=== PATIENT | male | born 1940 | race Caucasian/White ===

== ENCOUNTER 2019-05-20 21:56 | Inpatient (IN) | payer MEDICARE ==
[~2019-05-20] VITALS: Ht 188 cm; Wt 113.6 kg
[2019-05-20 22:31] LABS: BASOPHILS # (AUTO) 0.1 X10'3 (0-0.2); BASOPHILS % (AUTO) 1.5 % (0-1); EOSINOPHILS # (AUTO) 0.1 X10'3 (0-0.9); EOSINOPHILS % (AUTO) 2.2 % (0-6); HEMATOCRIT 46.4 % (42.0-52.0); HEMOGLOBIN 15.9 g/dl (14.0-17.9); MEAN CORPUSCULAR HEMOGLOBIN 28.4 PG (27.0-31.0); MEAN CORPUSCULAR HGB CONC 34.3 g/dL (33.0-36.5); MEAN CORPUSCULAR VOLUME 82.7 FL (78-98); MEAN PLATELET VOLUME 8.4 FL (7.4-10.4); MONOCYTES # (AUTO) 0.5 X10'3 (0-0.9); MONOCYTES % (AUTO) 8.3 % (2-12); NEUTROPHILS # (AUTO) 2.8 X10'3 (1.8-7.7); PLATELET COUNT 169 X10'3 (140-440); WHITE BLOOD COUNT 5.5 X10'3 (4.5-11.0)
[2019-05-20 22:45] LABS: ALANINE AMINOTRANSFERASE 53 U/L (12-78); ALBUMIN/GLOBULIN RATIO 1.4 (1.1-1.5); ALKALINE PHOSPHATASE 100 IU/L (46-116); ANION GAP 9 (8-16); ASPARTATE AMINO TRANSFERASE 30 U/L (10-37); BILIRUBIN,TOTAL 0.4 MG/DL (0.1-1.0); BLOOD UREA NITROGEN 20 MG/DL (7-18); CALCIUM 8.6 MG/DL (8.5-10.1); CHLORIDE 106 MMOL/L (99-107); CREATININE 1.05 MG/DL (0.60-1.10); SODIUM 141 MMOL/L (135-145); TOTAL PROTEIN 6.9 G/DL (6.4-8.2); eGFR 68 ML/MIN
[2019-05-20 22:47] LABS: GLUCOSE 158 MG/DL (70-104); POTASSIUM 3.9 MMOL/L (3.5-5.1)
[2019-05-20] MEDS ORDERED: nitroGLYCERIN 1gm ointment UD TP ONE (23:00)
[2019-05-20] MEDS ORDERED: aspirin 81mg tab.chew PO ONE (23:00)
[2019-05-20] MEDS ORDERED: enoxaparin 100mg/ml syringe SUBCUT ONE (23:00)
[2019-05-20 23:13] LABS: PARTIAL THROMBOPLASTIN TIME 27 SECONDS (22-32)
[2019-05-20 23:27] LABS: MAGNESIUM 1.7 MG/DL (1.5-2.4)
[2019-05-20] MEDS ORDERED: NAPR220C15 PO (23:38)
--- NOTE | 2019-05-20 23:39 | NUR ---
PT WAS BEEN UPDATED ON PLAN OF CARE AND NEED FOR ADMISSION - IS CURRENTLY AT BEDSIDE BUT WILL BE GOING HOME FOR THE NIGHT.
[2019-05-20] MEDS ORDERED: acetaminophen 325mg tablet PO PRN (23:45)
[2019-05-20] MEDS ORDERED: magnesium 4gm in 100ml NS 100 ML IV PRN (23:45)
[2019-05-20] MEDS ORDERED: morphine 2 MG/ML inj. syringe IV PRN (23:45)
[2019-05-20] MEDS ORDERED: magnesium Cl slow-release 64mg tablet PO PRN (23:45)
[2019-05-20] MEDS ORDERED: magnesium 2GM in 50ml NS 50 ML IV PRN (23:45)
[2019-05-20] MEDS ORDERED: potassium CL 10mEq/100ml bag 100 ML IV PRN ×2 (23:45)
[2019-05-20] MEDS ORDERED: potassium Cl 20 mEq SR tablet PO PRN ×2 (23:45)
[2019-05-20] MEDS ORDERED: ondansetron/PF 4mg/2ml inj IV PRN (23:45)
[2019-05-21] VITALS (12 sets, daily range): BP systolic 115–172; BP diastolic 66–97
[2019-05-21] MEDS: normal saline 1000ml 1,000 ML IV SCH ×3 (01:55→18:09)
--- NOTE | 2019-05-21 02:19 | NUR ---
Page Sent promotional table spacer PAGER ID: [phone] MESSAGE: [phone] A Nishant Flud here for chest pain had a critical 3hr trop of 2.17 from previous 0.24. Bobbi [phone]
--- NOTE | 2019-05-21 02:42 | NUR ---
Dr. Bro notified of elevated trop of 2.17. Adali ordered an aggrastat and heparin drip along with 1inch nitro paste q8. pharmacy stated to start the heparin drip at 0600 since the patient was given lovenox downstairs.
[2019-05-21] MEDS: tirofiban 5mg in NS 100mL 100 ML IV SCH ×2 (02:47→07:50)
[2019-05-21 05:08] LABS: BASOPHILS % (AUTO) 0.7 % (0-1); EOSINOPHILS # (AUTO) 0.1 X10'3 (0-0.9); EOSINOPHILS % (AUTO) 2.3 % (0-6); HEMOGLOBIN 14.9 g/dl (14.0-17.9); LYMPHOCYTES # (AUTO) 2.5 X10'3 (1.1-4.8); LYMPHOCYTES % (AUTO) 42.8 % (21-51); MEAN CORPUSCULAR HEMOGLOBIN 28.4 PG (27.0-31.0); MEAN CORPUSCULAR HGB CONC 33.9 g/dL (33.0-36.5); MEAN CORPUSCULAR VOLUME 83.6 FL (78-98); MEAN PLATELET VOLUME 8.5 FL (7.4-10.4); MONOCYTES # (AUTO) 0.5 X10'3 (0-0.9); NEUTROPHILS # (AUTO) 2.6 X10'3 (1.8-7.7); NEUTROPHILS % (AUTO) 45.2 % (42-75); PLATELET COUNT 169 X10'3 (140-440); RED BLOOD COUNT 5.27 X10'6 (4.70-6.10); RED CELL DISTRIBUTION WIDTH 14.4 % (11.5-14.5); WHITE BLOOD COUNT 5.7 X10'3 (4.5-11.0)
[2019-05-21 05:22] LABS: ALBUMIN 3.7 G/DL (3.4-5.0); ANION GAP 5 (8-16); BLOOD UREA NITROGEN 19 MG/DL (7-18); BUN/CREATININE RATIO 20.2 (5.4-32.0); CALCIUM 8.9 MG/DL (8.5-10.1); CHLORIDE 108 MMOL/L (99-107); CREATININE 0.94 MG/DL (0.60-1.10); GLUCOSE 106 MG/DL (70-104); SODIUM 143 MMOL/L (135-145); TOTAL CARBON DIOXIDE 30.2 MMOL/L (24-32); eGFR 77 ML/MIN
--- NOTE | 2019-05-21 05:28 | NUR ---
Page Sent promotional table spacer PAGER ID: [phone] MESSAGE: Nishant Heard [id number] here for chest pain. critical 6hr trop of 5.8 from 2.17. on the aggrastat drip, pharmacy stated to start heparin drip @0600 since he received the lovenox in the ED. Bobbi [phone]
[2019-05-21] MEDS ORDERED: heparin 25,000 UNIT/250ml bag 250 ML IV SCH (06:00)
[2019-05-21] MEDS ORDERED: heparin 10,000 units/1 ML INJ IV PRN (06:00)
--- NOTE | 2019-05-21 06:25 | NUR ---
Problems reprioritized. Patient report given, questions answered & plan of care reviewed with Beatriz POTTER.
--- NOTE | 2019-05-21 06:31 | NUR ---
Patient in room PCU 3023. I have received report from TARIQ Martines and had the opportunity to ask questions and assume patient care. Patient currently resting in bed, bed locked and low, call light in reach, no acute distress, will continue to monitor.
[2019-05-21] MEDS: nitroGLYCERIN 1gm ointment UD TP SCH ×3 (07:43→16:11)
[2019-05-21] MEDS: K and/or MAG REPLACEMENT MC SCH ×2 (07:50→20:00)
[2019-05-21] MEDS ORDERED: hydrALAZINE 20mg/ml inj. IV PRN (08:45)
--- NOTE | 2019-05-21 10:22 | NUR ---
PAGER ID: [phone] MESSAGE: TARIQ Henderson, ext [phone], [phone], Flud, critical value: 12-hour trop 8.59
[2019-05-21] MEDS ORDERED: midazolam 2 mg/2 ml injection ONE ×2 (11:14→12:05)
[2019-05-21] MEDS ORDERED: LIDOcaine 1% (10mg/ml)w/preservative injection 20ml MDV ONE (11:14)
[2019-05-21] MEDS ORDERED: fentaNYL/PF 50MCG/1 ML 2ML syringe ONE (11:14)
[2019-05-21] MEDS ORDERED: iohexol 350MG/ML 100ml bottle IV ONE ×3 (11:15→12:52)
[2019-05-21] MEDS ORDERED: iohexol 350 MG/ML 50ML vial IV ONE ×2 (11:15→12:25)
--- NOTE | 2019-05-21 11:31 | NUR ---
PAGER ID: [phone] MESSAGE: TARIQ Henderson, ext [phone], [phone], [place], kimberly heparin infiltrated in CARLENE, IV removed, purple bruising noted, bleeding stopped, new IV placed and heparin restarted.
[2019-05-21] MEDS ORDERED: tirofiban 5mg in NS 100mL 100 ML IV ONE (11:49)
[2019-05-21] MEDS ORDERED: heparin 1,000unit/ml 10ml vial 10 ML ONE (12:29)
[2019-05-21] MEDS ORDERED: ticagrelor 90mg tablet ONE (13:02)
[2019-05-21] MEDS ORDERED: HYDROcodone/acetaminophen 10/325mg tab PO PRN (13:45)
[2019-05-21] MEDS ORDERED: acetaminophen 325mg tablet PO PRN (13:45)
[2019-05-21] MEDS ORDERED: HYDROcodone/acetaminophen 5mg/325mg tablet PO PRN (13:45)
[2019-05-21] MEDS ORDERED: TICA90TA PO (13:50)
[2019-05-21] MEDS ORDERED: ASPI-1265 PO (13:50)
[2019-05-21] MEDS ORDERED: ATOR40TA PO (13:50)
[2019-05-21] MEDS: atorvastatin 20mg tablet PO SCH (14:24)
--- NOTE | 2019-05-21 16:18 | NUR ---
PAGER ID: [phone] MESSAGE: TARIQ Henderson, ext [phone], [phone], [place], kimberly patient got up out of bed at hour 3 of 6 hrs bedrest post cath, patient was gotten back to bed by staff and I explained to him again why he cannot get up. puncture site still CDI and no hematoma seen.
--- NOTE | 2019-05-21 18:22 | NUR ---
Problems reprioritized. Patient report given, questions answered & plan of care reviewed with TARIQ Klein.
--- NOTE | 2019-05-21 18:30 | NUR ---
Patient in room U 3024. I have received report from Ana POTTER and had the opportunity to ask questions and assume patient care. Addendum: 05/22/19 at 0049 by Abhishek Fraire RN Amend - [address] [place] [address] and Beatriz Brown RN
[2019-05-22] MEDS: nitroGLYCERIN 1gm ointment UD TP SCH ×2 (00:13→07:38)
[2019-05-22] MEDS: normal saline 1000ml 1,000 ML IV SCH ×2 (00:19→04:09)
[2019-05-22 03:00] VITALS: BP 122/71
[2019-05-22 06:00] VITALS: BP 147/84
--- NOTE | 2019-05-22 06:10 | NUR ---
Problems reprioritized. Patient report given, questions answered & plan of care reviewed with Beatriz Verde
[2019-05-22 06:21] LABS: BASOPHILS % (AUTO) 0.7 % (0-1); EOSINOPHILS # (AUTO) 0.1 X10'3 (0-0.9); EOSINOPHILS % (AUTO) 1.3 % (0-6); HEMATOCRIT 42.2 % (42.0-52.0); LYMPHOCYTES # (AUTO) 1.6 X10'3 (1.1-4.8); MEAN CORPUSCULAR HEMOGLOBIN 27.7 PG (27.0-31.0); MEAN CORPUSCULAR HGB CONC 33.1 g/dL (33.0-36.5); MEAN CORPUSCULAR VOLUME 83.7 FL (78-98); MEAN PLATELET VOLUME 8.3 FL (7.4-10.4); MONOCYTES # (AUTO) 0.7 X10'3 (0-0.9); MONOCYTES % (AUTO) 10.9 % (2-12); NEUTROPHILS # (AUTO) 3.9 X10'3 (1.8-7.7); NEUTROPHILS % (AUTO) 62.1 % (42-75); PLATELET COUNT 157 X10'3 (140-440); RED BLOOD COUNT 5.05 X10'6 (4.70-6.10); RED CELL DISTRIBUTION WIDTH 14.2 % (11.5-14.5); WHITE BLOOD COUNT 6.3 X10'3 (4.5-11.0)
[2019-05-22 06:30] LABS: ALBUMIN 3.3 G/DL (3.4-5.0); ANION GAP 9 (8-16); BLOOD UREA NITROGEN 13 MG/DL (7-18); BUN/CREATININE RATIO 16.5 (5.4-32.0); CALCIUM 8.7 MG/DL (8.5-10.1); CHLORIDE 108 MMOL/L (99-107); CREATININE 0.79 MG/DL (0.60-1.10); GLUCOSE 105 MG/DL (70-104); POTASSIUM 3.9 MMOL/L (3.5-5.1); SODIUM 142 MMOL/L (135-145); TOTAL CARBON DIOXIDE 24.6 MMOL/L (24-32); eGFR > 90 ML/MIN
[2019-05-22] MEDS: atorvastatin 20mg tablet PO SCH (07:37)
[2019-05-22] MEDS: K and/or MAG REPLACEMENT MC SCH (07:38)
--- NOTE | 2019-05-22 08:48 | NUR ---
PAGER ID: [phone] MESSAGE: TARIQ Henderson, ext [phone], [phone], Flud, patient reports feeling a bit short of breath and I heard crackles in bilateral bases, fluids were running at 200 so I stopped them. Also, is he going home with nitrobid or will we change to something else?
[2019-05-22] MEDS ORDERED: aspirin 81mg tablet.DR PO ONE (08:55)
[2019-05-22] MEDS ORDERED: ticagrelor 90mg tablet PO SCH (08:55)
[2019-05-22 11:00] VITALS: BP 153/88
--- NOTE | 2019-05-22 12:07 | NUR ---
Received order for patient to discharge to home. Patient belongings gathered, IV removed, catheter tip intact, hemostasis achievied, telemetry removed, wrist band removed, patient able to dress independently. Educated patient on discharge medications, life style changes and follow up appointment with Dr. Cornell, patient and family members verbalized understanding of teaching. Patient taken outside via wheelchair, was able to ambulate to the vehicle. Stable at time of discharge.
== END 2019-05-22 12:12 | disposition home or self-care (01) | DRG 247 ==
LOC: ER 21:57 → ED HOLD 23:42 → PCU 3S 05-21 00:48 → MED 3N 05-21 22:50 → PCU 3S 05-21 22:57
PROVIDERS: ADMIT Internal Medicine; ATTEND Family Medicine
PROC: 027136Z Dilation of Coronary Artery, Two Arteries with Three Drug-eluting Intraluminal Devices, Percutaneous Approach (ICD-10-PCS; principal; 2019-05-21)
PROC: 4A023N7 Measurement of Cardiac Sampling and Pressure, Left Heart, Percutaneous Approach (ICD-10-PCS; 2019-05-21)
PROC: B2111ZZ Fluoroscopy of Multiple Coronary Arteries using Low Osmolar Contrast (ICD-10-PCS; 2019-05-21)
PROC: B2151ZZ Fluoroscopy of Left Heart using Low Osmolar Contrast (ICD-10-PCS; 2019-05-21)
DX: I21.4 Non-ST elevation (NSTEMI) myocardial infarction (principal); F17.200 Nicotine dependence, unspecified, uncomplicated; I25.110 Atherosclerotic heart disease of native coronary artery with unstable angina pectoris
CPT/HCPCS: 36415; 71045; 71046; 80048; 80053; 83735; 83880; 84484; 85025; 85610; 85730; 87081; 92920; 92921; 93005; 93306; 93458; 96372; 99152; 99153; 99285; A4620; A6258; C1751; C1760; C1769; C1874; C1894; G0378; J1644; J1650; J2001; J2250; J3010; J3246; J7030; Q9967

== ENCOUNTER 2019-09-04 16:42 | Emergency (ER) | payer MEDICARE ==
[~2019-09-04] VITALS: Ht 185.4 cm; Wt 105.5 kg
[~2019-09-04 16:42] MED LIST: ASPI-1265 PO; ATOR40TA PO; TICA90TA PO
[2019-09-04 17:50] LABS: BASOPHILS # (AUTO) 0.1 X10'3 (0-0.2); BASOPHILS % (AUTO) 0.8 % (0-1); EOSINOPHILS # (AUTO) 0.2 X10'3 (0-0.9); EOSINOPHILS % (AUTO) 2.1 % (0-6); HEMATOCRIT 39.3 % (42.0-52.0); LYMPHOCYTES # (AUTO) 2.1 X10'3 (1.1-4.8); LYMPHOCYTES % (AUTO) 29.4 % (21-51); MEAN CORPUSCULAR HEMOGLOBIN 27.5 PG (27.0-31.0); MEAN CORPUSCULAR HGB CONC 33.1 g/dL (33.0-36.5); MEAN CORPUSCULAR VOLUME 82.9 FL (78-98); MEAN PLATELET VOLUME 7.4 FL (7.4-10.4); MONOCYTES # (AUTO) 0.8 X10'3 (0-0.9); MONOCYTES % (AUTO) 11.8 % (2-12); NEUTROPHILS % (AUTO) 55.9 % (42-75); PLATELET COUNT 225 X10'3 (140-440); RED BLOOD COUNT 4.74 X10'6 (4.70-6.10); RED CELL DISTRIBUTION WIDTH 14.2 % (11.5-14.5); WHITE BLOOD COUNT 7.1 X10'3 (4.5-11.0)
[2019-09-04 17:56] LABS: CLARITY,URINE SLIGHTLY CLOUDY (Clear); COLOR,URINE YELLOW (Yellow); GLUCOSE, URINE NEGATIVE (Neg); KETONES,URINE NEGATIVE (Neg); LEUKOCYTE ESTERASE ,URINE NEGATIVE (Neg); NITRITES, URINE NEGATIVE (Neg); OCCULT BLOOD,URINE MODERATE (Neg); PROTEIN,URINE 100 mg/dl (Neg)
[2019-09-04 17:57] LABS: PARTIAL THROMBOPLASTIN TIME 31 SECONDS (22-32)
[2019-09-04 18:00] LABS: ALANINE AMINOTRANSFERASE 38 U/L (12-78); ALBUMIN 3.6 G/DL (3.4-5.0); ALBUMIN/GLOBULIN RATIO 1.2 (1.1-1.5); ALKALINE PHOSPHATASE 137 IU/L (46-116); ANION GAP 8 (8-16); ASPARTATE AMINO TRANSFERASE 28 U/L (10-37); BILIRUBIN,TOTAL 0.6 MG/DL (0.1-1.0); BLOOD UREA NITROGEN 25 MG/DL (7-18); BUN/CREATININE RATIO 20.2 (5.4-32.0); CALCIUM 9.2 MG/DL (8.5-10.1); CHLORIDE 107 MMOL/L (99-107); CREATININE 1.24 MG/DL (0.60-1.10); GLUCOSE 123 MG/DL (70-104); POTASSIUM 3.7 MMOL/L (3.5-5.1); SODIUM 141 MMOL/L (135-145); TOTAL CARBON DIOXIDE 25.6 MMOL/L (24-32); TOTAL PROTEIN 6.7 G/DL (6.4-8.2); eGFR 56 ML/MIN
[2019-09-04 18:01] LABS: UA COLLECTION TYPE CLN CATCH MIDSTREAM
[2019-09-04 18:02] LABS: BACTERIA,URINE FEW /HPF (Neg); MUCUS STRANDS MODERATE /LPF (Neg); RBC,URINE NONE SEEN /HPF (0-2); SQUAMOUS EPITHELIAL CELL,UR FEW /LPF (FEW); WBC,URINE 0-4 /HPF (0-4)
[2019-09-04 18:03] LABS: COARSE GRANULAR CAST 0-3 /LPF (NEGATIVE)
[2019-09-04] MEDS ORDERED: tranexamic acid 1gm/0.7% sal. 100 ML IV ONE (18:05)
[2019-09-04] MEDS ORDERED: POTA10TA19 PO (18:12)
[2019-09-04] MEDS ORDERED: ROSU40TA22 PO (18:12)
[2019-09-04] MEDS ORDERED: FURO40TA4 PO (18:12)
[2019-09-04] MEDS ORDERED: METO-395 PO (18:12)
[2019-09-04 18:43] VITALS: BP 133/74
--- NOTE | 2019-09-04 18:45 | NUR ---
Telephone SBAR report phoned to [facility] and spoke with TARIQ Dubois. Report given at bedside to [facility] medic crew and care of the patient transferred.
== END 2019-09-04 18:45 | disposition short-term general hospital (02) ==
LOC: ER 16:42
DX: S06.0X0A Concussion without loss of consciousness, initial encounter (principal); R51 Headache; M54.2 Cervicalgia; R53.1 Weakness; I25.10 Atherosclerotic heart disease of native coronary artery without angina pectoris; Z86.73 Personal history of transient ischemic attack (TIA), and cerebral infarction without residual deficits; Z98.890 Other specified postprocedural states; Z79.82 Long term (current) use of aspirin; Z79.899 Other long term (current) drug therapy; W18.39XA Other fall on same level, initial encounter; Y93.89 Activity, other specified; Y92.89 Other specified places as the place of occurrence of the external cause; Y99.8 Other external cause status
CPT/HCPCS: 36415; 70450; 72125; 80053; 81001; 82948; 84484; 85025; 85610; 85730; 93005; 96365; 99291

== ENCOUNTER 2019-09-19 11:16 | Emergency (ER) | payer MEDICARE ==
[~2019-09-19] VITALS: Ht 185.4 cm; Wt 96.5 kg
[~2019-09-19 11:16] MED LIST changes: -ATOR40TA PO; +FURO40TA4 PO; +METO-395 PO; +POTA10TA19 PO; +ROSU40TA22 PO
[2019-09-19 12:58] LABS: CLARITY,URINE CLEAR (Clear); COLOR,URINE YELLOW (Yellow); GLUCOSE, URINE NEGATIVE (Neg); KETONES,URINE NEGATIVE (Neg); LEUKOCYTE ESTERASE ,URINE NEGATIVE (Neg); NITRITES, URINE NEGATIVE (Neg); OCCULT BLOOD,URINE NEGATIVE (Neg); PH,URINE 5.5 (4.8-8.0); PROTEIN,URINE NEGATIVE (Neg); UA COLLECTION TYPE CLN CATCH MIDSTREAM
[2019-09-19 13:50] LABS: BASOPHILS % (AUTO) 0.6 % (0-1); EOSINOPHILS # (AUTO) 0.1 X10'3 (0-0.9); EOSINOPHILS % (AUTO) 1.7 % (0-6); HEMATOCRIT 39.3 % (42.0-52.0); HEMOGLOBIN 12.9 g/dl (14.0-17.9); LYMPHOCYTES # (AUTO) 2.1 X10'3 (1.1-4.8); LYMPHOCYTES % (AUTO) 32.8 % (21-51); MEAN CORPUSCULAR HEMOGLOBIN 27.6 PG (27.0-31.0); MEAN CORPUSCULAR HGB CONC 32.9 g/dL (33.0-36.5); MEAN CORPUSCULAR VOLUME 83.8 FL (78-98); MEAN PLATELET VOLUME 7.6 FL (7.4-10.4); MONOCYTES # (AUTO) 0.7 X10'3 (0-0.9); MONOCYTES % (AUTO) 10.6 % (2-12); NEUTROPHILS # (AUTO) 3.4 X10'3 (1.8-7.7); NEUTROPHILS % (AUTO) 54.3 % (42-75); PLATELET COUNT 197 X10'3 (140-440); RED BLOOD COUNT 4.69 X10'6 (4.70-6.10); RED CELL DISTRIBUTION WIDTH 14.4 % (11.5-14.5); WHITE BLOOD COUNT 6.3 X10'3 (4.5-11.0)
[2019-09-19 13:57] LABS: ALANINE AMINOTRANSFERASE 42 U/L (12-78); ALBUMIN 3.5 G/DL (3.4-5.0); ALBUMIN/GLOBULIN RATIO 1.1 (1.1-1.5); ALKALINE PHOSPHATASE 137 IU/L (46-116); ANION GAP 8 (8-16); ASPARTATE AMINO TRANSFERASE 26 U/L (10-37); BILIRUBIN,TOTAL 0.5 MG/DL (0.1-1.0); BLOOD UREA NITROGEN 21 MG/DL (7-18); BUN/CREATININE RATIO 21.6 (5.4-32.0); CALCIUM 9.3 MG/DL (8.5-10.1); CHLORIDE 110 MMOL/L (99-107); CREATININE 0.97 MG/DL (0.60-1.10); GLUCOSE 94 MG/DL (70-104); SODIUM 144 MMOL/L (135-145); TOTAL CARBON DIOXIDE 26.4 MMOL/L (24-32); TOTAL PROTEIN 6.6 G/DL (6.4-8.2); eGFR 74 ML/MIN
[2019-09-19 14:11] VITALS: BP 146/81
--- NOTE | 2019-09-19 14:11 | NUR ---
SPOUSE AT BEDSIDE.
== END 2019-09-19 14:51 | disposition home or self-care (01) ==
LOC: ER 11:18
DX: R41.3 Other amnesia (principal); I25.10 Atherosclerotic heart disease of native coronary artery without angina pectoris; Z86.73 Personal history of transient ischemic attack (TIA), and cerebral infarction without residual deficits; Z79.82 Long term (current) use of aspirin; Z79.899 Other long term (current) drug therapy
CPT/HCPCS: 36415; 80053; 81003; 85025; 99284

== ENCOUNTER 2019-09-22 15:56 | Emergency (ER) | payer MEDICARE ==
[~2019-09-22] VITALS: Ht 185.4 cm; Wt 104.3 kg
[2019-09-22 17:44] VITALS: BP 121/72
== END 2019-09-22 17:46 | disposition home or self-care (01) ==
LOC: ER 15:57
DX: S06.5X9A Traumatic subdural hemorrhage with loss of consciousness of unspecified duration, initial encounter (principal); I25.10 Atherosclerotic heart disease of native coronary artery without angina pectoris; I10 Essential (primary) hypertension; Z86.73 Personal history of transient ischemic attack (TIA), and cerebral infarction without residual deficits; Z79.82 Long term (current) use of aspirin; Z79.899 Other long term (current) drug therapy; W19.XXXA Unspecified fall, initial encounter; Y93.89 Activity, other specified; Y92.89 Other specified places as the place of occurrence of the external cause; Y99.8 Other external cause status
CPT/HCPCS: 70450; 99285

== ENCOUNTER 2019-09-23 10:52 | Emergency (ER) | payer MEDICARE ==
[~2019-09-23] VITALS: Ht 185.4 cm; Wt 103.2 kg
[2019-09-23 11:05] VITALS: BP 112/58
== END 2019-09-23 12:27 | disposition home or self-care (01) ==
LOC: ER 10:55
DX: S06.5X9A Traumatic subdural hemorrhage with loss of consciousness of unspecified duration, initial encounter (principal); I25.10 Atherosclerotic heart disease of native coronary artery without angina pectoris; I10 Essential (primary) hypertension; Z95.5 Presence of coronary angioplasty implant and graft; Z86.73 Personal history of transient ischemic attack (TIA), and cerebral infarction without residual deficits; Z79.82 Long term (current) use of aspirin; Z79.899 Other long term (current) drug therapy; W18.39XA Other fall on same level, initial encounter; Y93.89 Activity, other specified; Y92.89 Other specified places as the place of occurrence of the external cause; Y99.8 Other external cause status
CPT/HCPCS: 70450; 99284